=== PATIENT | female | born 1930 | race Caucasian/White ===

== ENCOUNTER 2017-02-18 10:12 | Emergency (ER) | payer MEDICARE ==
[~2017-02-18] VITALS: Ht 157.5 cm; Wt 53.6 kg
[2017-02-18 10:19] VITALS: TEMP 97.8
[2017-02-18 10:56] LABS: BASO % 0.7 % (0.0-2.0); EOS # 0.1 (0.0-0.7); EOS % 1.7 % (0-4.0); GRAN # 3.7 (1.4-6.5); GRAN % 63.5 % (42.2-75.2); HEMATOCRIT 38.4 % (37.0-47.0); HEMOGLOBIN 12.8 g/dl (12.5-16.0); LYMPH # 1.4 (1.2-3.4); MEAN CELL VOLUME 95 fl (80.0-100.0); MEAN CORPUSCULAR HEMOGLOBIN 32 pg (27.0-31.0); MEAN CORPUSCULAR HGB CONC 33 g/dl (33.0-37.0); MEAN PLATELET VOLUME 10.9 fl (7.4-10.4); MONO # 0.6 (0.1-0.6); MONO % 9.8 % (1.7-9.3); PLATELET COUNT 203 K/mm3 (130-400); RED BLOOD COUNT 4.06 M/mm3 (4.10-5.30); REDCELL DISTRIBUTION WIDTH-CV 11.9 % (11.5-14.5); WHITE BLOOD COUNT 5.8 K/mm3 (4.8-10.8)
[2017-02-18 10:59] LABS: INR 1.2 (0.8-3.0); PROTHROMBIN TIME 13.5 SECONDS (9.7-12.8)
[2017-02-18 11:02] LABS: PARTIAL THROMBOPLASTIN TIME 41.4 SECONDS (26.0-37.0)
[2017-02-18 11:06] LABS: ADJUSTED CALCIUM 9.2 mg/dL (8.4-10.2); ALANINE AMINOTRANSFERASE 21 U/L (9-52); ALBUMIN 4.2 gm/dL (3.5-5.0); ALKALINE PHOSPHATASE 53 U/L (50-136); ANION GAP 12 mmol/L (7-16); BILIRUBIN,TOTAL 0.9 mg/dL (0.0-1.0); BLOOD UREA NITROGEN 26 mg/dL (7-17); CALCIUM 9.4 mg/dL (8.4-10.2); CARBON DIOXIDE 29 mmol/L (22-30); CHLORIDE 98 mmol/L (98-107); CREATININE, serum 0.79 mg/dL (0.52-1.25); GLUCOSE 99 mg/dL (74-106); POTASSIUM 4.2 mmol/L (3.4-5.0); SODIUM 140 mmol/L (137-145); TOTAL PROTEIN 7.2 gm/dL (6.4-8.2)
[2017-02-18 11:16] LABS: TROPONIN-I < 0.012 ng/mL (0.000-0.034)
[2017-02-18 11:21] LABS: PROLACTIN 33.8 ng/mL (3.0-18.6)
[2017-02-18] MEDS ORDERED: COREG 6.256.25 MG/TA PO (11:24)
[2017-02-18] MEDS ORDERED: LANOXIN 0.120.125 MG PO (11:24)
[2017-02-18] MEDS ORDERED: ELIQUIS 2.5 PO (11:24)
[2017-02-18] MEDS ORDERED: LASIX 20MG TABL20 MG PO (11:31)
[2017-02-18] MEDS ORDERED: ALDACTONE 25MG25 M1 PO (11:31)
[2017-02-18] MEDS ORDERED: MULTI VITAMINS1 TAB PO (11:32)
[2017-02-18] MEDS ORDERED: PROTONIX 40MG T40 MG PO (11:32)
[2017-02-18] MEDS ORDERED: PRINIVIL5 MG PO (11:32)
[2017-02-18] MEDS ORDERED: FLONASE NASAL S16 GM NS (11:33)
[2017-02-18] MEDS ORDERED: GLUCOSAMINE & C1 CA2 PO (11:33)
[2017-02-18 11:34] LABS: DIGOXIN 1.3 ng/mL (0.8-2.0)
[2017-02-18 11:38] LABS: PH 5 (5-8); SQUAMOUS EPITHELIAL None Seen /hpf; URINE APPEARANCE Clear; URINE BACTERIA None Seen /hpf; URINE BILIRUBIN Negative (NEGATIVE); URINE BLOOD Negative (NEGATIVE); URINE COLOR Yellow; URINE GLUCOSE Negative (NEGATIVE); URINE KETONE Negative (NEGATIVE); URINE RBC 0-2 /hpf; URINE UROBILINOGEN Negative (NEGATIVE); URINE WBC 0-2 /hpf
[2017-02-18] MEDS ORDERED: KEPPRA 500MG500 MG PO (12:00)
[2017-02-18 12:11] VITALS: BP 139/63; PULSE 82
== END 2017-02-18 12:45 | disposition home or self-care (01) ==
LOC: COL.ER 10:12
PROVIDERS: Emergency Medicine
DX: R55 Syncope and collapse (principal); S09.90XA Unspecified injury of head, initial encounter; I48.91 Unspecified atrial fibrillation; R79.89 Other specified abnormal findings of blood chemistry; Z79.01 Long term (current) use of anticoagulants; W19.XXXA Unspecified fall, initial encounter; Y92.009 Unspecified place in unspecified non-institutional (private) residence as the place of occurrence of the external cause; R40.2362 Coma scale, best motor response, obeys commands, at arrival to emergency department; R40.2142 Coma scale, eyes open, spontaneous, at arrival to emergency department; R40.2252 Coma scale, best verbal response, oriented, at arrival to emergency department
CPT/HCPCS: J1953; J7030

== ENCOUNTER 2017-02-24 12:34 | Day surgery (SDC) | payer MEDICARE ==
[~2017-02-24] VITALS: Ht 157.5 cm; Wt 54.4 kg
[2017-02-24] VITALS (11 sets, daily range): BP systolic 105–134; BP diastolic 42–66; PULSE 60–112; TEMP 97.1–98.6
[~2017-02-24 12:34] MED LIST: ALDACTONE 25MG25 M1 PO; COREG 6.256.25 MG/TA PO; ELIQUIS 2.5 PO; FLONASE NASAL S16 GM NS; GLUCOSAMINE & C1 CA2 PO; KEPPRA 500MG500 MG PO; LANOXIN 0.120.125 MG PO; LASIX 20MG TABL20 MG PO; MULTI VITAMINS1 TAB PO; PRINIVIL5 MG PO; PROTONIX 40MG T40 MG PO
[2017-02-24 13:52] LABS: MEAN CELL VOLUME 96 fl (80.0-100.0); MEAN CORPUSCULAR HGB CONC 33 g/dl (33.0-37.0); MEAN PLATELET VOLUME 10.7 fl (7.4-10.4); PLATELET COUNT 198 K/mm3 (130-400); RED BLOOD COUNT 3.45 M/mm3 (4.10-5.30); REDCELL DISTRIBUTION WIDTH-CV 12.1 % (11.5-14.5); WHITE BLOOD COUNT 6.1 K/mm3 (4.8-10.8)
[2017-02-24 13:55] LABS: MEAN CORPUSCULAR HEMOGLOBIN 32 pg (27.0-31.0)
[2017-02-24 13:58] LABS: INR 1.1 (0.8-3.0); PROTHROMBIN TIME 12.1 SECONDS (9.7-12.8)
[2017-02-24 14:06] LABS: CALCIUM 9.3 mg/dL (8.4-10.2); CREATININE, serum 0.67 mg/dL (0.52-1.25); POTASSIUM 4.4 mmol/L (3.4-5.0)
[2017-02-24] MEDS ORDERED: ALDACTONE 25MG25 M1 PO (19:30)
[2017-02-25 00:46] VITALS: BP 105/42; PULSE 60; TEMP 98.6
[2017-02-25 03:04] VITALS: BP 128/51; PULSE 70; TEMP 98.3
== END 2017-02-25 12:04 | disposition home or self-care (01) ==
LOC: COL.CAR 12:34 → MEDICAL 18:06 → COL.CAR 02-25 12:04
PROVIDERS: Internal Medicine Interventional Cardiology
DX: I49.5 Sick sinus syndrome (principal); I45.5 Other specified heart block; I48.2 Chronic atrial fibrillation
CPT/HCPCS: OP; C1786; C1894; C1898; J0690; J2250; J3010; J7030

== ENCOUNTER → 2017-04-07 | Outpatient (CLI) | payer MEDICARE | LOC: COL.CARD 12:45 | DX: G40.909 Epilepsy, unspecified, not intractable, without status epilepticus (principal); R55 Syncope and collapse ==

== ENCOUNTER 2017-07-20 08:15 | Outpatient (RCR) | payer MEDICARE | END 2017-07-25 09:17 | LOC: MKS.ESL.PT 08:15 | DX: Z01.818 Encounter for other preprocedural examination (principal); M75.01 Adhesive capsulitis of right shoulder | CPT/HCPCS: G8978-GP; G8979-GP; G8980-GP ==

== ENCOUNTER 2017-10-13 10:00 | Outpatient (RCR) | payer MEDICARE | END 2017-10-22 | disposition still patient (30) | LOC: MKS.ESL.PT | DX: Z47.89 Encounter for other orthopedic aftercare (principal); M75.01 Adhesive capsulitis of right shoulder; Z95.0 Presence of cardiac pacemaker | CPT/HCPCS: G8978-GP; G8979-GP ==

== ENCOUNTER 2017-10-23 09:51 | Outpatient (RCR) | payer MEDICARE | END 2017-10-27 09:58 | disposition home or self-care (01) | LOC: MKS.ESL.PT 09:51 | DX: Z47.89 Encounter for other orthopedic aftercare (principal); Z98.890 Other specified postprocedural states | CPT/HCPCS: G8979-GP; G8980-GP ==

== ENCOUNTER 2018-09-18 13:30 | Outpatient (RCR) | payer MEDICARE | END 2018-09-25 | disposition home or self-care (01) | LOC: MKS.ESL.PT | DX: R27.0 Ataxia, unspecified (principal); Z91.81 History of falling; Z79.899 Other long term (current) drug therapy; Z79.01 Long term (current) use of anticoagulants | CPT/HCPCS: G8990-GP; G8991-GP; G8992-GP ==

== ENCOUNTER 2018-10-16 11:00 | Outpatient (RCR) | payer MEDICARE | END 2018-12-26 | disposition home or self-care (01) | LOC: MKS.ESL.PT | DX: R27.0 Ataxia, unspecified (principal); Z79.01 Long term (current) use of anticoagulants; Z79.899 Other long term (current) drug therapy | CPT/HCPCS: G8979-GP; G8980-GP ==

== ENCOUNTER 2019-08-06 17:14 | Inpatient (IN) | payer MEDICARE ==
[~2019-08-06] VITALS: Ht 152.4 cm; Wt 48.0 kg
[2019-08-06] MEDS ORDERED: KAPSPARGO SPRIN25 MG PO (17:26)
[2019-08-06] MEDS ORDERED: LAMICTAL XR50 MG PO (17:26)
[2019-08-06 17:45] LABS: BASO # 0.1 (0.0-0.2); BASO % 0.6 % (0.0-2.0); EOS # 0.1 (0.0-0.7); EOS % 1.1 % (0-4.0); GRAN # 6.4 (1.4-6.5); GRAN % 72.9 % (42.2-75.2); HEMATOCRIT 38.9 % (37.0-47.0); HEMOGLOBIN 12.6 g/dl (12.5-16.0); LYMPH # 1.3 (1.2-3.4); LYMPH % 14.6 % (20.0-51.0); MEAN CELL VOLUME 94 fl (80.0-100.0); MEAN CORPUSCULAR HEMOGLOBIN 31 pg (27.0-31.0); MEAN CORPUSCULAR HGB CONC 32 g/dl (33.0-37.0); MEAN PLATELET VOLUME 11.9 fl (7.4-10.4); MONO # 0.9 (0.1-0.6); MONO % 10.6 % (1.7-9.3); PLATELET COUNT 211 K/mm3 (130-400); RED BLOOD COUNT 4.13 M/mm3 (4.10-5.30)
[2019-08-06 17:53] LABS: INR 1.2 (0.8-3.0); PROTHROMBIN TIME 13.9 SECONDS (9.7-12.8)
[2019-08-06 17:55] LABS: ALBUMIN 4.5 gm/dL (3.5-5.0); CALCIUM 9.4 mg/dL (8.4-10.2); CREATININE, serum 0.72 (0.52-1.25); PARTIAL THROMBOPLASTIN TIME 52.3 SECONDS (26.0-37.0); POTASSIUM 4.6 mmol/L (3.4-5.0); TOTAL PROTEIN 7.6 gm/dL (6.4-8.2)
[2019-08-06 18:05] LABS: TROPONIN-I 0.032 ng/mL (0.000-0.035)
--- NOTE | 2019-08-06 20:30 | NUR ---
Received report from ED nurseAngeles.
--- NOTE | 2019-08-06 20:35 | NUR ---
Patient arrives to ICU room 5 via wheelchair. Patient ambulates to ICU bed with standby assistance. Patient arrives on 4L oxygen via nasal cannula and with Nitro drip infusing at 5 mcg/min or 1.5 mL/hr. Patient is accompanied by her daughter Khushi. Vitals were obtained and skin assessed. Some 1+ bilateral lower extremity edema noted, as well as a bruise to the left hand from a previous IV insertion site per patient; no other skin issues observed. Patient's belongings include a pair white socks, a pair of blue jeans, a pair of purple underpants, a white bra, and castellanos shawl. She also has 2 thin gold rings, which she requested to keep on her. Denies any pain at this time.
[2019-08-06 21:40] VITALS: BP 150/77; PULSE 60; TEMP 98.2
[2019-08-06 21:59] LABS: CREATINE KINASE 63 U/L (30-135); MAGNESIUM 1.7 mg/dL (1.6-2.3); PHOSPHOROUS 4.6 mg/dL (2.5-4.5)
[2019-08-06 22:09] LABS: TROPONIN-I 0.034 ng/mL (0.000-0.035)
[2019-08-06] MEDS ORDERED: TOPROL XL 25MG25 MG PO (22:17)
[2019-08-06] MEDS ORDERED: LAMICTAL 25MG T25 MG PO (22:18)
[2019-08-06 22:22] LABS: DIGOXIN < 0.4 ng/mL (0.8-2.0)
[2019-08-06 22:47] VITALS: BP 139/68
--- NOTE | 2019-08-06 23:02 | NUR ---
Initially BiPAP was to be initiated to decrease pt's SOB and WOB. At this time pt is resting comfortably on 4L NC with no distress noted. HR 59 RR 21 and SpO2 98%. At this time BiPAP is on standby and will be utilized if need arises.
[2019-08-07] VITALS (370 sets, daily range): BP systolic 90–139; BP diastolic 45–100; PULSE 59–69; TEMP 97.6–98.5; O2SAT 66–100
[2019-08-07 02:31] LABS: COLLECTION METHOD CLEAN CATCH
[2019-08-07 02:37] LABS: PH 6 (5-8); SQUAMOUS EPITHELIAL None Seen /hpf; URINE APPEARANCE Clear; URINE BACTERIA Moderate /hpf; URINE BILIRUBIN Negative (NEGATIVE); URINE BLOOD Negative (NEGATIVE); URINE COLOR Colorless; URINE GLUCOSE Negative (NEGATIVE); URINE KETONE Negative (NEGATIVE); URINE LEUKOCYTE ESTERASE 1+ (NEGATIVE); URINE NITRATE Negative (NEGATIVE); URINE PROTEIN(semi-quant) Negative (NEGATIVE); URINE RBC 0-2 /hpf; URINE UROBILINOGEN Negative (NEGATIVE)
[2019-08-07 03:22] LABS: BASO % 0.5 % (0.0-2.0); EOS # 0.1 (0.0-0.7); EOS % 0.6 % (0-4.0); GRAN # 6.2 (1.4-6.5); GRAN % 71.9 % (42.2-75.2); LYMPH # 1.3 (1.2-3.4); LYMPH % 14.6 % (20.0-51.0); MEAN CELL VOLUME 93 fl (80.0-100.0); MEAN CORPUSCULAR HEMOGLOBIN 31 pg (27.0-31.0); MEAN CORPUSCULAR HGB CONC 33 g/dl (33.0-37.0); MEAN PLATELET VOLUME 11.3 fl (7.4-10.4); MONO # 1.1 (0.1-0.6); MONO % 12.2 % (1.7-9.3); PLATELET COUNT 201 K/mm3 (130-400); RED BLOOD COUNT 4.19 M/mm3 (4.10-5.30); REDCELL DISTRIBUTION WIDTH-CV 13.1 % (11.5-14.5)
[2019-08-07 03:32] LABS: CALCIUM 9.4 mg/dL (8.4-10.2); CHOLESTEROL RISK RATIO 1.9; CREATININE, serum 0.86 (0.52-1.25); MAGNESIUM 1.7 mg/dL (1.6-2.3); POTASSIUM 3.5 mmol/L (3.4-5.0)
[2019-08-07 03:43] LABS: TROPONIN-I 0.03 ng/mL (0.000-0.035)
--- NOTE | 2019-08-07 06:30 | NUR ---
Dr. Zaldivar rounded at this time. Gave verbal order repeat to decrease lasix drip from 20 mg/hr to 10mg/hr.
--- NOTE | 2019-08-07 07:00 | NUR ---
Gave bedside report to BOZENA Hendricks. Care transferred at this time.
--- NOTE | 2019-08-07 08:50 | NUR ---
WAITER/WAITRESS COUNTER student met with the patient to discuss a discharge plan. The patient lives in [place] with her daughter Elda Bansal. The patient has three other children that do not live in the state. The patient does not have DME and reports independence with ADLs. The patient's PCP is Shraddha Nicole and patient receives medication from [employer]. Patient has no difficulties affording them but her daughter provided assistance to pick them up. The patient does not have advance directives in the EMR but she reports she does have them completed. The patient plans to return home upon discharge. janitorial services supervisor will continue to follow to ensure a safe discharge.
--- NOTE | 2019-08-07 09:03 | NUR ---
KEG FILLER student spoke to the patient's daughter, Elda regarding advanced directives. Elad reports the patient has a living will that was filled out last week and will bring a copy this evening 08/07 or tomorrow 08/08. KEG FILLER student contacted Dr. Nicole's nurse, Verito to inquire about advanced directive paperwork. Verito reports they do not have any on file for the patient. KEG FILLER student to fax once paperwork is brought in. academic services professional will continue to follow to ensure safe discharge.
[2019-08-07 10:16] LABS: CALCIUM 9.5 mg/dL (8.4-10.2); CREATININE, serum 1.08 (0.52-1.25)
[2019-08-07 10:26] LABS: TROPONIN-I 0.032 ng/mL (0.000-0.035)
[2019-08-07 13:18] LABS: CALCIUM 9.1 mg/dL (8.4-10.2); CREATININE, serum 1.09 (0.52-1.25); MAGNESIUM 2.6 mg/dL (1.6-2.3); POTASSIUM 4.6 mmol/L (3.4-5.0)
--- NOTE | 2019-08-07 13:30 | NUR ---
PT'S PUREWICK DISCONTINUED PER PROVIDERS ORDER. PT DOES NOT HAVE INCONTINENCE AND HAVING DISCOMFORT FROM PUREWICK. ADDITIONALLY, IV LASIX IS DISCONTINUED AND PT IS EXPECTED TO HAVE DECREASED OUTPUT.
--- NOTE | 2019-08-07 19:10 | NUR ---
Bedside report received from BOZENA Hendricks
--- NOTE | 2019-08-07 20:00 | NUR ---
Patient awake upon entrance into the room. Patient is alert and oriented, does need some prompting with questions, but ultimately answers correctly. Patient has no complaints of pain at the beginning of assessment, but then developed a foot cramp rated 5/10, patient denies want for medication. Assessment complete. Lungs are clear bilaterally with diminished bases. HR is regular with a murmur heard. Patient is V-paced. Bowel sounds are active x4. Patient requests to get up and get cleaned up before bed. Assisted with bath and oral care. Patient also walks to the bathroom with assistance. Patient returns to bed. No further needs at this time. Will continue to monitor. Call light within reach.
[2019-08-08] VITALS (85 sets, daily range): BP systolic 105–119; BP diastolic 45–65; PULSE 59–63; TEMP 97.8–98.9; O2SAT 89–99
--- NOTE | 2019-08-08 | NUR ---
Patient sleeping comfortably in bed. No signs of pain or distress. Patient awakens easily to name. Denies any pain. Vitals obtained and remain stable. No further needs at this time. Will continue to monitor. Call light within reach.
--- NOTE | 2019-08-08 04:00 | NUR ---
Patient asleep at this time. Awakens to name. No complaints of pain. Vitals obtained and remain stable. No further needs. Will continue to monitor. Call light within reach.
[2019-08-08 06:07] LABS: BASO # 0.1 (0.0-0.2); BASO % 0.6 % (0.0-2.0); EOS # 0.2 (0.0-0.7); EOS % 2.7 % (0-4.0); GRAN # 4.9 (1.4-6.5); GRAN % 59.9 % (42.2-75.2); HEMATOCRIT 39.1 % (37.0-47.0); HEMOGLOBIN 12.8 g/dl (12.5-16.0); LYMPH # 1.9 (1.2-3.4); LYMPH % 23.7 % (20.0-51.0); MEAN CELL VOLUME 93 fl (80.0-100.0); MEAN CORPUSCULAR HEMOGLOBIN 31 pg (27.0-31.0); MEAN CORPUSCULAR HGB CONC 33 g/dl (33.0-37.0); MONO # 1.1 (0.1-0.6); MONO % 12.9 % (1.7-9.3); PLATELET COUNT 192 K/mm3 (130-400); RED BLOOD COUNT 4.19 M/mm3 (4.10-5.30); REDCELL DISTRIBUTION WIDTH-CV 12.8 % (11.5-14.5)
[2019-08-08 06:16] LABS: CALCIUM 9.2 mg/dL (8.4-10.2); CREATININE, serum 1.26 (0.52-1.25); MAGNESIUM 2.6 mg/dL (1.6-2.3); POTASSIUM 3.9 mmol/L (3.4-5.0)
--- NOTE | 2019-08-08 07:20 | NUR ---
Bedside report given to BOZENA Hendricks and student nurse
--- NOTE | 2019-08-08 08:30 | NUR ---
Pt a&o x4. Pt trying to get out of bed this am by herself following provider telling her she is going home. Pt does have difficulty recalling events that have taken place over the night and rehabilitation therapist hours. Pt frequently has been complaining of no one answering the phone when ordering breakfast, but pt was found to attempt using her call light as a phone. Pt denies pain.
--- NOTE | 2019-08-08 10:00 | NUR ---
Pt was up this am with nurse to room sink, was able to provide her own oral care, and hygiene with soap and rag at sink while standing. Pts balance has much improved from yesterday. Pt denies pain and states she had a good nights rest last night.
--- NOTE | 2019-08-08 11:02 | NUR ---
First visit from the sports betting manager. prayed with patient. No other needs right now.
--- NOTE | 2019-08-08 15:05 | NUR ---
Report given to BOZENA GODOY. Pt to Medical floor room 357 via wheelchair at 1528. Pt belongings with patient.
--- NOTE | 2019-08-08 19:21 | NUR ---
Arrived to floor from ICU, Med Rec checked, oriented to room.
--- NOTE | 2019-08-08 20:20 | NUR ---
Patient assessed at this time. Alert and oriented x 4. Denies having pain and discomfort. Perpheral IVs to right hand and left wrist flushed. Both sites are without redness, warmth, swelling, and pain. Denies having SOB and dyspnea. LS CTA in upper lobes, diminished in lower. Respirations even and unlabored. HRR. Telemetry monitoring in place. Denies chest pain. Capillary refill less than 3 seconds. Non-tenting skin turgor. BSAx4. Abdomen soft and non-tender. 1+ edema BLE. Daughter in visiting. Questions answered. Voiced no other questions, needs, or concerns. Sitting in recliner. Call light within reach.
[2019-08-09 03:40] VITALS: BP 121/69; PULSE 82; TEMP 98.9
--- NOTE | 2019-08-09 05:20 | NUR ---
Patient has been resting in bed most of shift. Has denied having pain, discomfort, and SOB throughout the night. Voices no questions, needs, or concers at this itme. Call light is within reach.
[2019-08-09 06:49] LABS: BASO % 0.6 % (0.0-2.0); EOS # 0.2 (0.0-0.7); EOS % 3.2 % (0-4.0); GRAN # 3.9 (1.4-6.5); GRAN % 60.1 % (42.2-75.2); HEMOGLOBIN 12.1 g/dl (12.5-16.0); LYMPH # 1.4 (1.2-3.4); LYMPH % 20.9 % (20.0-51.0); MEAN CELL VOLUME 94 fl (80.0-100.0); MEAN CORPUSCULAR HEMOGLOBIN 31 pg (27.0-31.0); MEAN CORPUSCULAR HGB CONC 33 g/dl (33.0-37.0); MEAN PLATELET VOLUME 11.6 fl (7.4-10.4); MONO % 14.7 % (1.7-9.3); PLATELET COUNT 201 K/mm3 (130-400); RED BLOOD COUNT 3.89 M/mm3 (4.10-5.30); REDCELL DISTRIBUTION WIDTH-CV 12.6 % (11.5-14.5)
[2019-08-09 06:55] LABS: HEMATOCRIT 36.4 % (37.0-47.0)
[2019-08-09 06:58] VITALS: BP 122/58; PULSE 61; TEMP 98
[2019-08-09 07:14] LABS: CREATININE, serum 0.87 (0.52-1.25); MAGNESIUM 2.4 mg/dL (1.6-2.3); POTASSIUM 3.9 mmol/L (3.4-5.0)
--- NOTE | 2019-08-09 09:57 | NUR ---
Pt awake and alert upon entry, sitting in recliner, talkative and appropriate, shift assessments complete, left Pt call light in reach, bed in lowest position.
[2019-08-09 11:37] VITALS: BP 111/57; PULSE 63; TEMP 98.1
[2019-08-09] MEDS ORDERED: LASIX 20MG TABL20 MG PO (12:51)
--- NOTE | 2019-08-09 13:20 | NUR ---
KEVIN met with the patient to review discharge plan and to discuss home health services. The patient reports that she is not interested in any home health at this time, but would be interested in a list of the different home health agencies for future use. KEVIN provided the patient with Medicare.gov's list of home health agencies that serve [place]. The patient informed KEVIN that she is in [facility] program of [facility]. She states that they meet 3xs a week and that she plans to resume the program after discharge. The patient is to discharge back home with her daughter today, 08/09. KEVIN presented and explained the IM form to the patient. The patient verbalized understanding, signed, and she was provided a copy. No additional needs at this time.
--- NOTE | 2019-08-09 15:43 | NUR ---
Pt discharged to home, escorted to entrance, left with family via private auto.
== END 2019-08-09 15:43 | disposition home or self-care (01) | DRG 291 ==
LOC: COL.ER 17:14 → ICU 19:18 → MEDICAL 08-08 15:28
PROVIDERS: Family Medicine; Nurse Practitioner Family; Physician Assistant; ADMIT Student in an Organized Health Care Education/Training Program
DX: I50.23 Acute on chronic systolic (congestive) heart failure (principal); J96.01 Acute respiratory failure with hypoxia; E87.3 Alkalosis; J98.11 Atelectasis; I42.9 Cardiomyopathy, unspecified; I48.2 Chronic atrial fibrillation; G40.909 Epilepsy, unspecified, not intractable, without status epilepticus; Z79.01 Long term (current) use of anticoagulants; Z95.0 Presence of cardiac pacemaker; Z88.1 Allergy status to other antibiotic agents
CPT/HCPCS: 99223-AI; 99232-AI; 99239; J1940; J2405; J3475; J7040; Q9967